=== PATIENT | male | born 1980 ===

== ENCOUNTER 2020-06-06 22:11 | Emergency (ER) | payer SELFPAY ==
[~2020-06-06] VITALS: Ht 177.8 cm; Wt 90.9 kg
[2020-06-06 22:15] VITALS: BP 139/81
--- NOTE | 2020-06-06 23:22 | NUR ---
PT STATES HES READY TO GO. VSS, AWAITING DISPO
--- NOTE | 2020-06-06 23:37 | NUR ---
PT YELLING FROM ROOM THAT HE WANTS TO GO, "GET ME CRUTCHES" THEN THE NEXT MINUTE SAYING HE WANTS PAIN MEDS.
--- NOTE | 2020-06-06 23:42 | NUR ---
DC HOME WITH INSTRUCT. VSS
--- NOTE | 2020-06-06 23:46 | NUR ---
PER CODY NO CRUTCHES ORDERED. Addendum: 06/06/20 at 2346 by JANY SECURITY HERE TO ASSIST WITH DC PT HAS BECOME VERY LOUD, AGGRESSIVE AND BELIGERENT.
== END 2020-06-06 23:51 | disposition home or self-care (01) ==
LOC: ED 23:00
DX: M25.572 Pain in left ankle and joints of left foot (principal); Z72.9 Problem related to lifestyle, unspecified; M10.9 Gout, unspecified
CPT/HCPCS: 99283